=== PATIENT | female | born 1955 | race Two or more races ===

== ENCOUNTER 2018-04-25 10:28 | Outpatient (CLI) | payer OTHER | END 2018-04-25 10:36 | disposition home or self-care (01) | LOC: SONOGRAMA 10:28 | DX: E04.1 Nontoxic single thyroid nodule (principal) ==

== ENCOUNTER 2023-04-10 07:19 | Day surgery (SDC) | payer OTHER ==
[2023-04-03 09:52] LABS: PH,URINE 5.5 (5.0-8.0); URINE APPEARANCE Clear; URINE BILIRRUBIN Negative (NEGATIVE); URINE BLOOD Small; URINE COLOR Yellow; URINE GLUCOSE Negative (NEGATIVE); URINE LEUKOCYTE Trace; URINE NITRATE Negative; URINE PROTEIN Negative (NEGATIVE); URINE UROBILINOGEN 0.2 E.U./dl
[2023-04-03 09:53] LABS: HEMOGLOBIN 13.8 g/dL (12.0-15.00); MEAN CORPUSCULAR HEMOGLOBIN 30.3 pg (27.00-32.0); MEAN CORPUSCULAR HGB CONC 34.4 g/dl (32.0-36.0); PLATELET COUNT 284 K/uL (150-450); RED BLOOD COUNT 4.54 M/uL (4.00-6.00); RED CELL DISTRIBUTION WIDTH 13.5 % (11.5-14.5)
[2023-04-03 09:57] LABS: URINE EPITHELIAL CELLS 8.6 uL (0.0-38.8); URINE RBC 26.2 uL (0.0-20.8); URINE WBC 16.6 uL (0.0-23.2)
[2023-04-03 10:28] LABS: INR 0.98; PARTIAL THROMBOPLASTIN TIME 26.7 SECONDS (22.0-34.0); PROTHROMBIN TIME 10.3 SECONDS (9.0-11.5)
[2023-04-03 10:54] LABS: ALBUMIN 3.8 gm/dL (3.4-5.0); BILIRUBIN TOTAL 0.42 mg/dL (0.3-1.2); CALCIUM 9.2 mg/dL (8.5-10.1); CREATININE SERUM 0.59 mg/dL (0.55-1.02); GFR 101.36; GLOBULINA 3.9 G/DL (2.4-3.5); POTASSIUM 4.89 mEq/L (3.5-5.1); TOTAL PROTEIN 7.7 gm/dL (6.4-8.2); TSH 0.662 uIU/mL (0.358-3.74)
[~2023-04-10] VITALS: Ht 172.7 cm; Wt 78.5 kg
[~2023-04-10 07:19] MED LIST: SYNTHROID137 MCG PO
== END 2023-04-10 18:25 | disposition home or self-care (01) ==
LOC: CIR.AMB 07:19
PROVIDERS: ATTEND Specialist
DX: K43.2 Incisional hernia without obstruction or gangrene (principal); E03.9 Hypothyroidism, unspecified; Z88.0 Allergy status to penicillin; Z20.822 Contact with and (suspected) exposure to COVID-19

== ENCOUNTER 2024-01-28 11:43 | Outpatient (CLI) | payer OTHER | END 2024-01-28 11:46 | disposition home or self-care (01) | LOC: SONOGRAMA 11:43 | PROVIDERS: ATTEND Pathology Anatomic Pathology & Clinical Pathology | DX: D34 Benign neoplasm of thyroid gland (principal); E07.89 Other specified disorders of thyroid; E04.1 Nontoxic single thyroid nodule ==

== ENCOUNTER 2024-06-14 13:32 | Emergency (ER) | payer OTHER ==
[~2024-06-14] VITALS: Ht 170.2 cm; Wt 73.9 kg
[2024-06-14 13:38] VITALS: BP 122/81; O2SAT 97
[2024-06-14] MEDS ORDERED: SILVADENE20 GM TOP (15:42)
== END 2024-06-14 15:46 | disposition home or self-care (01) ==
LOC: ER 13:34
DX: T23.101A Burn of first degree of right hand, unspecified site, initial encounter (principal); T79.8XXA Other early complications of trauma, initial encounter; X08.8XXA Exposure to other specified smoke, fire and flames, initial encounter; Y93.89 Activity, other specified; Y92.89 Other specified places as the place of occurrence of the external cause; Y99.8 Other external cause status; E03.8 Other specified hypothyroidism; Z88.0 Allergy status to penicillin